=== PATIENT | male | born 1955 | race Caucasian/White ===

== ENCOUNTER 2018-10-21 11:33 | Day surgery (SDC) | payer OTHER ==
[2018-10-21] MEDS ORDERED: HEPARIN 1000 UNITS/ML 10 ML INJ (13:29)
[2018-10-21] MEDS ORDERED: LIDOCAINE 1% (MDV) 20 ML INJ (13:29)
[2018-10-21] MEDS ORDERED: FENTAnyl 50 MCG/ML VIAL (13:29)
[2018-10-21] MEDS ORDERED: MIDAZOLAM 1 MG/ML 2 ML INJ (13:30)
[2018-10-21] MEDS ORDERED: NITROGLYCERIN (IC) 100 MCG/ML INJ (13:30)
[2018-10-21] MEDS ORDERED: VERAPAMIL 5 MG INJ (13:30)
[2018-10-21 14:23] LABS: ADD MAN DIFF? NO
[2018-10-21 14:26] LABS: BASOPHILS % 0.4 % (0.0-2.0); EOSINOPHILS # 0.1 10^3/ul (0.0-0.5); EOSINOPHILS % 1.5 % (0.0-7.0); HEMATOCRIT 41.1 % (42.0-52.0); HEMOGLOBIN 13.9 g/dl (14.0-18.0); LYMPHOCYTES # 2.6 10^3/ul (0.8-2.9); LYMPHOCYTES % 36.6 % (15.0-51.0); MEAN CORPUSCULAR HEMOGLOBIN 32.3 pg (29.0-33.0); MEAN CORPUSCULAR HGB CONC 33.8 g/dl (32.0-37.0); MEAN CORPUSCULAR VOLUME 95.4 fl (82.0-101.0); MEAN PLATELET VOLUME 10.2 fl (7.4-10.4); MONOCYTE # 0.4 10^3/ul (0.3-0.9); NEUTROPHILS % 55.2 % (39.0-77.0); PLATELET COUNT 232 10^3/UL (140-415); RED BLOOD COUNT 4.31 10^6/ul (4.70-6.10)
[2018-10-21 14:26] LABS: WHITE BLOOD COUNT 7.2 10^3/ul (4.8-10.8)
[2018-10-21 14:30] LABS: PROTIME 12.3 Sec (11.9-14.9)
[2018-10-21 14:36] LABS: ALANINE AMINOTRANSFERASE 24 IU/L (13-69); ALBUMIN 4.1 g/dl (3.3-4.9); ALBUMIN/GLOBULIN RATIO 1.46; ALKALINE PHOSPHATASE 46 IU/L (42-121); ANION GAP 8 (5-13); ASPARTATE AMINO TRANSFERASE 27 IU/L (15-46); BILIRUBIN,INDIRECT 0.5 mg/dl (0-1.1); BILIRUBIN,TOTAL 0.5 mg/dl (0.2-1.3); BLOOD UREA NITROGEN 16 mg/dl (7-20); CALCIUM 9.2 mg/dl (8.4-10.2); CARBON DIOXIDE 28 mmol/L (21-31); CHLORIDE 105 mmol/L (97-110); CREATININE 0.92 mg/dl (0.61-1.24); Estimated GFR > 60 mL/min (>60); GLUCOSE 114 mg/dl (70-220); POTASSIUM 4.2 mmol/L (3.5-5.1); SODIUM 141 mmol/L (135-144); TOTAL PROTEIN 6.9 g/dl (6.1-8.1)
[2018-10-21] MEDS ORDERED: SOD CHLORIDE 0.9% 1,000 ML IV (14:40)
== END 2018-10-21 17:01 | disposition home or self-care (01) ==
LOC: SDS 11:33
DX: I25.10 Atherosclerotic heart disease of native coronary artery without angina pectoris (principal); I10 Essential (primary) hypertension; R94.39 Abnormal result of other cardiovascular function study; E11.9 Type 2 diabetes mellitus without complications; Z79.82 Long term (current) use of aspirin; Z79.84 Long term (current) use of oral hypoglycemic drugs
CPT/HCPCS: 80053; 82962; 85025; 85610; 93005; 93458

== ENCOUNTER 2019-01-05 05:14 | Inpatient (IN) | payer OTHER ==
[2019-01-05] MEDS: MILRINONE LACTATE 2 MG in SOD CHLORIDE 0.9% 50 ML IV (06:00)
[2019-01-05] MEDS: PHENYLephrine 20MG IN 250 ML 250 ML IV (06:00)
[2019-01-05] MEDS: EPINEPHrine 4 MG in DEXTROSE 5% 246 ML IV (06:00)
[2019-01-05] MEDS: ASPIRIN 600 MG SUPP PR (06:00)
[2019-01-05] MEDS: INSULIN HUMAN REGULAR 100 UNIT in SOD CHLORIDE 0.9% 99 ML IVPB (06:00)
[2019-01-05] MEDS: HEPARIN (10000 UNITS/ML) 10,000 UNIT, MILRINONE LACTATE 10 MG in SOD CHLORIDE 0.9% 1,00... SC (06:00)
[2019-01-05] MEDS: CEFAZOLIN 2 GM/50 ML (PMX) 50 ML IVPB (06:30)
[2019-01-05] MEDS ORDERED: PAPAVERINE 60 MG INJ ×2 (06:37→08:22)
[2019-01-05] MEDS: HEPARIN 1000 UNITS/ML 10 ML INJ (06:37)
[2019-01-05] MEDS ORDERED: THROMBIN 5000 UNIT (RECOTHROM) VIAL (06:37)
[2019-01-05] MEDS ORDERED: VANCOMYCIN 1 GM INJ (06:37)
[2019-01-05] MEDS ORDERED: GELATIN SIZE 100 SPONGE (06:37)
[2019-01-05] MEDS: SOD CHLORIDE 0.9% 1,000 ML IV (06:39)
[2019-01-05] MEDS ORDERED: ISOFLURANE 15 MIN (07:00)
[2019-01-05] MEDS ORDERED: DOPamine-D5W 1.6 MG/ML 250 ML (07:00)
[2019-01-05] MEDS ORDERED: NITROGLYCERIN 50 MG/D5W 250 ML BTL (07:00)
[2019-01-05] MEDS ORDERED: MIDAZOLAM 5 ML ×2 (07:21→09:08)
[2019-01-05] MEDS ORDERED: LIDOCAINE 2% (SDV) 5 ML INJ ×2 (08:05→09:44)
[2019-01-05] MEDS ORDERED: CA CHLORIDE 10% 10 ML SYRINGE (08:05)
[2019-01-05] MEDS ORDERED: NA BICARBONATE 8.4% 50 ML SYG (08:05)
[2019-01-05] MEDS ORDERED: MANNITOL 20% 500 ML (08:05)
[2019-01-05] MEDS ORDERED: ALBUMIN HUMAN 25% 200 ML (08:05)
[2019-01-05] MEDS ORDERED: PHENYLephrine 10 MG INJ (08:05)
[2019-01-05] MEDS ORDERED: AMINOCAPROIC ACID 5 GM INJ ×4 (08:06→09:45)
[2019-01-05] MEDS ORDERED: POTASSIUM CHLORIDE 40 MEQ INJ (08:06)
[2019-01-05] MEDS ORDERED: HEPARIN 1000 UNITS/ML 10 ML INJ ×2 (08:06→08:15)
[2019-01-05] MEDS ORDERED: MAGNESIUM SULFATE (MG) 50% 10 ML INJ (08:06)
[2019-01-05] MEDS ORDERED: NORepinephrine 4 MG INJ (08:06)
[2019-01-05] MEDS ORDERED: CEFAZOLIN 1 GM INJ ×2 (08:07→09:45)
[2019-01-05] MEDS ORDERED: HEPARIN 10,000 UNITS/ML 1 ML INJ (09:38)
[2019-01-05] MEDS ORDERED: ROCURONIUM 50 MG INJ (09:44)
[2019-01-05] MEDS ORDERED: ETOMIDATE 20 MG INJ (09:44)
[2019-01-05] MEDS ORDERED: PROTAMINE 250 MG INJ (10:18)
[2019-01-05] MEDS ORDERED: ONDANSETRON 4 MG INJ IV (13:00)
[2019-01-05] MEDS ORDERED: DOPamine-D5W 1.6 MG/ML 250 ML IV (13:00)
[2019-01-05] MEDS ORDERED: LORAZEPAM 2 MG INJ IV (13:00)
[2019-01-05] MEDS ORDERED: morphine 2 MG INJ IV (13:00)
[2019-01-05] MEDS ORDERED: NITROGLYCERIN 50 MG/D5W (PMX) 250 ML IV (13:00)
[2019-01-05] MEDS ORDERED: DIPHENHYDRAMINE 50 MG INJ IV (13:00)
[2019-01-05] MEDS ORDERED: MEPERIDINE 25 MG INJ IV (13:00)
[2019-01-05] MEDS ORDERED: FENTAnyl 50 MCG/ML VIAL IV (13:00)
[2019-01-05 13:15] LABS: ADD MAN DIFF? NO; BASOPHILS % 0.1 % (0.0-2.0); EOSINOPHILS % 0.3 % (0.0-7.0); HEMATOCRIT 35.3 % (42.0-52.0); HEMOGLOBIN 11.7 g/dl (14.0-18.0); LYMPHOCYTES # 1.8 10^3/ul (0.8-2.9); LYMPHOCYTES % 18.6 % (15.0-51.0); MEAN CORPUSCULAR HEMOGLOBIN 32.9 pg (29.0-33.0); MEAN CORPUSCULAR HGB CONC 33.1 g/dl (32.0-37.0); MEAN CORPUSCULAR VOLUME 99.2 fl (82.0-101.0); MEAN PLATELET VOLUME 9.5 fl (7.4-10.4); MONOCYTE # 0.3 10^3/ul (0.3-0.9); MONOCYTES % 3.5 % (0.0-11.0); NEUTROPHIL # 7.2 10^3/ul (1.6-7.5); NEUTROPHILS % 77.2 % (39.0-77.0); PLATELET COUNT 118 10^3/UL (140-415); RED BLOOD COUNT 3.56 10^6/ul (4.70-6.10); RED CELL DISTRIBUTION WIDTH 12.2 % (11.5-14.5)
[2019-01-05 13:15] LABS: WHITE BLOOD COUNT 9.4 10^3/ul (4.8-10.8)
[2019-01-05 13:26] LABS: AADO2 Arterial 326.2 mmHg (7.0-24.0); Arterial Base Excess -4.6 mmol/L (-3.0-3); Arterial Blood Gas Oxygen Sat 97.5 mmHG (95.0-98.0); Arterial COHb 0.3 % (0.0-3.0); Arterial Fraction of Oxyhgb 96.8 % (93.0-99.0); Arterial MetHb 0.4 % (0.0-1.5); Arterial pCO2 46.6 mmhg (35-45); MODE VENT - AC; Site A-Line
[2019-01-05 13:30] LABS: MODE VENT - AC; MetHgb Mixed Venous 0.5 %; Mixed Venous COHb 0.5 %; Mixed Venous Fraction OxyHgb 69.6 %; Mixed Venous Oxygen Sat 70.3 mmHG (65.0-75.0); Mixed Venous Total Hemglobin 12.7 g/dl; Sample Type BLMV; Site OTHER
[2019-01-05 13:36] LABS: INR 1.34; PROTIME 16.7 Sec (11.9-14.9); PT RATIO 1.3
[2019-01-05 13:37] LABS: PARTIAL THROMBOPLASTIN TIME 30.2 Sec (23.0-35.0)
[2019-01-05 13:39] LABS: ANION GAP 5 (5-13); BLOOD UREA NITROGEN 13 mg/dl (7-20); CALCIUM 8.4 mg/dl (8.4-10.2); CARBON DIOXIDE 25 mmol/L (21-31); CHLORIDE 110 mmol/L (97-110); CREATININE 0.87 mg/dl (0.61-1.24); Estimated GFR > 60 mL/min (>60); GLUCOSE 99 mg/dl (70-220); MAGNESIUM 2.6 mg/dl (1.7-2.5); POTASSIUM 4.1 mmol/L (3.5-5.1); SODIUM 140 mmol/L (135-144)
[2019-01-05] MEDS ORDERED: PROPOFOL 100 ML (14:04)
[2019-01-05] MEDS ORDERED: MILRINONE LACTATE 100 ML (14:15)
[2019-01-05] MEDS: NORepinephrine 8MG/250 ML (PMX 250 ML IV ×2 (14:55→18:35)
[2019-01-05] MEDS: morphine 2 MG INJ IV ×4 (14:56→22:23)
[2019-01-05 16:38] LABS: AADO2 Arterial 88.8 mmHg (7.0-24.0); Arterial Base Excess -5.1 mmol/L (-3.0-3); Arterial COHb 0.2 % (0.0-3.0); Arterial Fraction of Oxyhgb 94.5 % (93.0-99.0); Arterial HCO3 20.4 mmol/L (22.0-26.0); Arterial MetHb 0.3 % (0.0-1.5); Arterial pCO2 39.5 mmhg (35-45); Blood Gas PS 10; MODE VENT - CPAP; Site A-Line
[2019-01-05] MEDS: PROPOFOL 100 ML IV (17:03)
[2019-01-05] MEDS ORDERED: DEXTROSE 50% 50 ML SYRINGE IV ×2 (18:00)
[2019-01-05] MEDS: D5-0.2 NACL + KCL 20 MEQ 1,000 ML IV (18:10)
[2019-01-05 18:16] LABS: ADD MAN DIFF? NO
[2019-01-05 18:19] LABS: WHITE BLOOD COUNT 13.3 10^3/ul (4.8-10.8)
[2019-01-05 18:19] LABS: BASOPHILS % 0.2 % (0.0-2.0); EOSINOPHILS # 0.1 10^3/ul (0.0-0.5); EOSINOPHILS % 0.8 % (0.0-7.0); HEMOGLOBIN 12.2 g/dl (14.0-18.0); LYMPHOCYTES # 1.3 10^3/ul (0.8-2.9); LYMPHOCYTES % 9.7 % (15.0-51.0); MEAN CORPUSCULAR HEMOGLOBIN 32.9 pg (29.0-33.0); MEAN CORPUSCULAR VOLUME 99.7 fl (82.0-101.0); MEAN PLATELET VOLUME 10.7 fl (7.4-10.4); MONOCYTE # 1.4 10^3/ul (0.3-0.9); MONOCYTES % 10.2 % (0.0-11.0); NEUTROPHIL # 10.4 10^3/ul (1.6-7.5); NEUTROPHILS % 78.7 % (39.0-77.0); PLATELET COUNT 153 10^3/UL (140-415); RED BLOOD COUNT 3.71 10^6/ul (4.70-6.10); RED CELL DISTRIBUTION WIDTH 12.4 % (11.5-14.5)
[2019-01-05 18:38] LABS: ANION GAP 8 (5-13); BLOOD UREA NITROGEN 15 mg/dl (7-20); CALCIUM 8.4 mg/dl (8.4-10.2); CARBON DIOXIDE 25 mmol/L (21-31); CHLORIDE 106 mmol/L (97-110); CREATININE 1.02 mg/dl (0.61-1.24); Estimated GFR > 60 mL/min (>60); GLUCOSE 162 mg/dl (70-220); MAGNESIUM 2.2 mg/dl (1.7-2.5); POTASSIUM 4.5 mmol/L (3.5-5.1); SODIUM 139 mmol/L (135-144)
[2019-01-05 18:39] LABS: INR 1.11; PARTIAL THROMBOPLASTIN TIME 24.4 Sec (23.0-35.0); PROTIME 14.4 Sec (11.9-14.9); PT RATIO 1.1
[2019-01-05] MEDS: INSULIN HUMAN REGULAR 100 UNIT in SOD CHLORIDE 0.9% 99 ML IV (18:43)
[2019-01-05] MEDS: ACCU-CHEK XX ×6 (18:47→23:07)
[2019-01-05 21:56] LABS: AADO2 Arterial 83.4 mmHg (7.0-24.0); Arterial Base Excess -4.5 mmol/L (-3.0-3); Arterial Blood Gas Oxygen Sat 96.4 mmHG (95.0-98.0); Arterial COHb 0.2 % (0.0-3.0); Arterial Fraction of Oxyhgb 95.9 % (93.0-99.0); Arterial HCO3 20.4 mmol/L (22.0-26.0); Arterial MetHb 0.3 % (0.0-1.5); Arterial pCO2 37.2 mmhg (35-45); MODE VENT - CPAP; Site A-Line
[2019-01-06] MEDS: ACETAMINOPHEN 325 MG TAB PO (00:26)
[2019-01-06] MEDS: ACCU-CHEK XX ×24 (01:12→23:01)
[2019-01-06] MEDS: morphine 2 MG INJ IV ×5 (02:10→15:54)
[2019-01-06] MEDS: PROPOFOL 100 ML IV ×2 (02:30→13:43)
[2019-01-06 05:43] LABS: ADD MAN DIFF? NO
[2019-01-06] MEDS: ONDANSETRON 4 MG INJ IV (05:52)
[2019-01-06 05:59] LABS: WHITE BLOOD COUNT 13.3 10^3/ul (4.8-10.8)
[2019-01-06 05:59] LABS: BASOPHILS % 0.2 % (0.0-2.0); HEMATOCRIT 35.5 % (42.0-52.0); HEMOGLOBIN 11.9 g/dl (14.0-18.0); LYMPHOCYTES # 1.5 10^3/ul (0.8-2.9); LYMPHOCYTES % 11.2 % (15.0-51.0); MEAN CORPUSCULAR HEMOGLOBIN 33.1 pg (29.0-33.0); MEAN CORPUSCULAR HGB CONC 33.5 g/dl (32.0-37.0); MEAN CORPUSCULAR VOLUME 98.6 fl (82.0-101.0); MEAN PLATELET VOLUME 10.6 fl (7.4-10.4); MONOCYTE # 1.1 10^3/ul (0.3-0.9); MONOCYTES % 8.5 % (0.0-11.0); NEUTROPHIL # 10.6 10^3/ul (1.6-7.5); NEUTROPHILS % 79.7 % (39.0-77.0); PLATELET COUNT 163 10^3/UL (140-415); RED CELL DISTRIBUTION WIDTH 12.6 % (11.5-14.5)
[2019-01-06 06:04] LABS: ANION GAP 5 (5-13); BLOOD UREA NITROGEN 15 mg/dl (7-20); CALCIUM 8.1 mg/dl (8.4-10.2); CARBON DIOXIDE 25 mmol/L (21-31); CHLORIDE 107 mmol/L (97-110); CREATININE 0.93 mg/dl (0.61-1.24); Estimated GFR > 60 mL/min (>60); GLUCOSE 145 mg/dl (70-220); MAGNESIUM 2.2 mg/dl (1.7-2.5); POTASSIUM 4.6 mmol/L (3.5-5.1); SODIUM 137 mmol/L (135-144)
[2019-01-06 07:57] LABS: AADO2 Arterial 124.9 mmHg (7.0-24.0); Arterial Base Excess -4.9 mmol/L (-3.0-3); Arterial Blood Gas Oxygen Sat 92.7 mmHG (95.0-98.0); Arterial COHb 0.2 % (0.0-3.0); Arterial Fraction of Oxyhgb 92.2 % (93.0-99.0); Arterial HCO3 20.2 mmol/L (22.0-26.0); Arterial MetHb 0.3 % (0.0-1.5); Arterial pCO2 37.6 mmhg (35-45); MODE NASAL CANNULA; Site A-Line
[2019-01-06] MEDS: ALBUTEROL/IPRATROPIUM (NEB) 3 ML AMP HHN ×5 (08:05→20:48)
[2019-01-06] MEDS: METOPROLOL 25 MG TAB PO ×2 (08:29→20:37)
[2019-01-06] MEDS: ASPIRIN (EC) 81 MG TAB PO (08:33)
[2019-01-06] MEDS: D5-0.2 NACL + KCL 20 MEQ 1,000 ML IV (10:00)
[2019-01-06] MEDS: KETOROLAC 15 MG INJ IV ×2 (10:00→17:03)
[2019-01-06] MEDS: NORepinephrine 8MG/250 ML (PMX 250 ML IV (11:45)
[2019-01-06 12:01] LABS: ADD MAN DIFF? NO
[2019-01-06 12:09] LABS: WHITE BLOOD COUNT 14.9 10^3/ul (4.8-10.8)
[2019-01-06 12:09] LABS: BASOPHILS % 0.1 % (0.0-2.0); HEMATOCRIT 33.1 % (42.0-52.0); HEMOGLOBIN 10.9 g/dl (14.0-18.0); LYMPHOCYTES # 2.1 10^3/ul (0.8-2.9); LYMPHOCYTES % 14.4 % (15.0-51.0); MEAN CORPUSCULAR HEMOGLOBIN 32.9 pg (29.0-33.0); MEAN CORPUSCULAR HGB CONC 32.9 g/dl (32.0-37.0); MEAN PLATELET VOLUME 10.4 fl (7.4-10.4); MONOCYTE # 1.3 10^3/ul (0.3-0.9); MONOCYTES % 8.5 % (0.0-11.0); NEUTROPHIL # 11.4 10^3/ul (1.6-7.5); NEUTROPHILS % 76.6 % (39.0-77.0); PLATELET COUNT 150 10^3/UL (140-415); RED BLOOD COUNT 3.31 10^6/ul (4.70-6.10); RED CELL DISTRIBUTION WIDTH 12.7 % (11.5-14.5)
[2019-01-06 12:25] LABS: ANION GAP 5 (5-13); BLOOD UREA NITROGEN 17 mg/dl (7-20); CALCIUM 7.7 mg/dl (8.4-10.2); CARBON DIOXIDE 25 mmol/L (21-31); CHLORIDE 102 mmol/L (97-110); CREATININE 0.89 mg/dl (0.61-1.24); Estimated GFR > 60 mL/min (>60); GLUCOSE 225 mg/dl (70-220); MAGNESIUM 2.1 mg/dl (1.7-2.5); POTASSIUM 5.1 mmol/L (3.5-5.1); SODIUM 132 mmol/L (135-144)
[2019-01-06] MEDS: ALBUMIN HUMAN 25% 100 ML IV ×2 (15:51→23:12)
[2019-01-06] MEDS ORDERED: ONDANSETRON 4 MG INJ IV (16:30)
[2019-01-06] MEDS: ALBUMIN HUMAN 5% 250 ML IV ×2 (19:20→19:54)
[2019-01-06] MEDS: FUROSEMIDE 20 MG INJ IV (19:41)
[2019-01-06] MEDS: FAMOTIDINE 20 MG TAB PO (20:21)
[2019-01-06] MEDS: DOCUSATE SODIUM 100 MG CAP PO (20:21)
[2019-01-06] MEDS: ATORVASTATIN 20 MG TAB PO (20:21)
[2019-01-06] MEDS: ATORVASTATIN 40 MG TAB PO (20:21)
[2019-01-06] MEDS: HYDROCODONE/APAP (7.5/325) TAB PO (20:22)
[2019-01-07] MEDS: ACCU-CHEK XX ×10 (00:06→09:00)
[2019-01-07] MEDS: morphine 2 MG INJ IV ×2 (00:43→03:17)
[2019-01-07] MEDS: NORepinephrine 8MG/250 ML (PMX 250 ML IV (01:15)
[2019-01-07] MEDS: INSULIN HUMAN REGULAR 100 UNIT in SOD CHLORIDE 0.9% 99 ML IV (01:28)
[2019-01-07] MEDS: D5-0.2 NACL + KCL 20 MEQ 1,000 ML IV ×2 (02:55→20:26)
[2019-01-07 04:59] LABS: ADD MAN DIFF? NO
[2019-01-07 05:15] LABS: BASOPHILS % 0.1 % (0.0-2.0); HEMATOCRIT 25.2 % (42.0-52.0); HEMOGLOBIN 8.3 g/dl (14.0-18.0); LYMPHOCYTES # 1.5 10^3/ul (0.8-2.9); LYMPHOCYTES % 14.8 % (15.0-51.0); MEAN CORPUSCULAR HEMOGLOBIN 32.8 pg (29.0-33.0); MEAN CORPUSCULAR HGB CONC 32.9 g/dl (32.0-37.0); MEAN CORPUSCULAR VOLUME 99.6 fl (82.0-101.0); MEAN PLATELET VOLUME 10.9 fl (7.4-10.4); MONOCYTE # 0.7 10^3/ul (0.3-0.9); MONOCYTES % 7.3 % (0.0-11.0); NEUTROPHIL # 7.9 10^3/ul (1.6-7.5); NEUTROPHILS % 77.5 % (39.0-77.0); PLATELET COUNT 119 10^3/UL (140-415); RED BLOOD COUNT 2.53 10^6/ul (4.70-6.10); RED CELL DISTRIBUTION WIDTH 12.7 % (11.5-14.5)
[2019-01-07 05:15] LABS: WHITE BLOOD COUNT 10.2 10^3/ul (4.8-10.8)
[2019-01-07 05:34] LABS: ANION GAP 6 (5-13); BLOOD UREA NITROGEN 15 mg/dl (7-20); CALCIUM 8.1 mg/dl (8.4-10.2); CARBON DIOXIDE 29 mmol/L (21-31); CHLORIDE 101 mmol/L (97-110); CREATININE 1.02 mg/dl (0.61-1.24); Estimated GFR > 60 mL/min (>60); GLUCOSE 99 mg/dl (70-220); POTASSIUM 3.9 mmol/L (3.5-5.1); SODIUM 136 mmol/L (135-144)
[2019-01-07] MEDS: KETOROLAC 15 MG INJ IV ×3 (05:47→22:11)
[2019-01-07] MEDS: ALBUMIN HUMAN 25% 100 ML IV (07:10)
[2019-01-07 07:18] LABS: ALANINE AMINOTRANSFERASE 26 IU/L (13-69); ALBUMIN 3.5 g/dl (3.3-4.9); ALKALINE PHOSPHATASE 34 IU/L (42-121); ASPARTATE AMINO TRANSFERASE 37 IU/L (15-46); BILIRUBIN,INDIRECT 0.7 mg/dl (0-1.1); BILIRUBIN,TOTAL 0.7 mg/dl (0.2-1.3); TOTAL PROTEIN 5.8 g/dl (6.1-8.1)
[2019-01-07] MEDS: METOPROLOL 25 MG TAB PO ×2 (09:00→20:16)
[2019-01-07] MEDS: DOCUSATE SODIUM 100 MG CAP PO ×2 (09:29→20:20)
[2019-01-07] MEDS: ASPIRIN (EC) 81 MG TAB PO (09:29)
[2019-01-07] MEDS: FAMOTIDINE 20 MG TAB PO ×2 (09:29→20:20)
[2019-01-07] MEDS ORDERED: GLUCOSE GEL 15 GRAM TUBE PO ×2 (09:30)
[2019-01-07] MEDS ORDERED: GLUCOSE GEL 15 GRAM TUBE BUCCAL (09:30)
[2019-01-07] MEDS ORDERED: GLUCAGON 1 MG INJ IM (09:30)
[2019-01-07] MEDS ORDERED: DEXTROSE 50% 50 ML SYRINGE IV ×2 (09:30)
[2019-01-07] MEDS: HYDROCODONE/APAP (7.5/325) TAB PO ×2 (10:59→17:11)
[2019-01-07] MEDS: INSULIN ASPART [NOVOLOG] 3 ML PEN SC ×3 (12:10→20:19)
[2019-01-07] MEDS: ATORVASTATIN 40 MG TAB PO (20:20)
[2019-01-08] MEDS: HYDROCODONE/APAP (7.5/325) TAB PO ×4 (01:12→23:10)
[2019-01-08] MEDS: ACCU-CHEK XX (01:25)
[2019-01-08 04:51] LABS: ADD MAN DIFF? NO
[2019-01-08 04:59] LABS: WHITE BLOOD COUNT 8.5 10^3/ul (4.8-10.8)
[2019-01-08 04:59] LABS: BASOPHILS % 0.1 % (0.0-2.0); EOSINOPHILS # 0.1 10^3/ul (0.0-0.5); EOSINOPHILS % 0.8 % (0.0-7.0); HEMATOCRIT 22.9 % (42.0-52.0); HEMOGLOBIN 7.6 g/dl (14.0-18.0); LYMPHOCYTES # 1.4 10^3/ul (0.8-2.9); LYMPHOCYTES % 16.4 % (15.0-51.0); MEAN CORPUSCULAR HEMOGLOBIN 32.9 pg (29.0-33.0); MEAN CORPUSCULAR HGB CONC 33.2 g/dl (32.0-37.0); MEAN CORPUSCULAR VOLUME 99.1 fl (82.0-101.0); MEAN PLATELET VOLUME 10.4 fl (7.4-10.4); MONOCYTE # 0.5 10^3/ul (0.3-0.9); MONOCYTES % 6.2 % (0.0-11.0); NEUTROPHIL # 6.5 10^3/ul (1.6-7.5); NEUTROPHILS % 75.9 % (39.0-77.0); PLATELET COUNT 112 10^3/UL (140-415); RED BLOOD COUNT 2.31 10^6/ul (4.70-6.10); RED CELL DISTRIBUTION WIDTH 12.7 % (11.5-14.5)
[2019-01-08] MEDS: KETOROLAC 15 MG INJ IV ×2 (05:49→13:40)
[2019-01-08 05:58] LABS: ANION GAP 8 (5-13); BLOOD UREA NITROGEN 17 mg/dl (7-20); CALCIUM 8.3 mg/dl (8.4-10.2); CARBON DIOXIDE 26 mmol/L (21-31); CHLORIDE 100 mmol/L (97-110); CREATININE 0.88 mg/dl (0.61-1.24); Estimated GFR > 60 mL/min (>60); GLUCOSE 156 mg/dl (70-220); POTASSIUM 4.4 mmol/L (3.5-5.1); SODIUM 134 mmol/L (135-144)
[2019-01-08] MEDS: FAMOTIDINE 20 MG TAB PO ×2 (08:32→21:38)
[2019-01-08] MEDS: ASPIRIN (EC) 81 MG TAB PO (08:32)
[2019-01-08] MEDS: D5W-0.45 NACL + KCL 20 MEQ 1,000 ML IV ×2 (08:33→17:26)
[2019-01-08] MEDS: DOCUSATE SODIUM 100 MG CAP PO ×2 (08:33→21:38)
[2019-01-08] MEDS: INSULIN ASPART [NOVOLOG] 3 ML PEN SC ×4 (09:33→22:03)
[2019-01-08] MEDS: morphine 2 MG INJ IV (11:09)
[2019-01-08] MEDS: SOD FERRIC GLUC COMPLX 125 MG in SOD CHLORIDE 0.9% 100 ML IVPB (13:34)
[2019-01-08] MEDS: ATORVASTATIN 40 MG TAB PO (21:38)
[2019-01-09] MEDS: D5W-0.45 NACL + KCL 20 MEQ 1,000 ML IV (00:40)
[2019-01-09] MEDS: ACCU-CHEK XX (02:25)
[2019-01-09] MEDS: morphine 2 MG INJ IV (04:06)
[2019-01-09 06:09] LABS: ADD MAN DIFF? NO
[2019-01-09 06:18] LABS: BASOPHILS % 0.3 % (0.0-2.0); EOSINOPHILS # 0.3 10^3/ul (0.0-0.5); HEMATOCRIT 24.6 % (42.0-52.0); HEMOGLOBIN 8.2 g/dl (14.0-18.0); LYMPHOCYTES # 1.6 10^3/ul (0.8-2.9); LYMPHOCYTES % 22.8 % (15.0-51.0); MEAN CORPUSCULAR HEMOGLOBIN 33.1 pg (29.0-33.0); MEAN CORPUSCULAR HGB CONC 33.3 g/dl (32.0-37.0); MEAN CORPUSCULAR VOLUME 99.2 fl (82.0-101.0); MEAN PLATELET VOLUME 9.9 fl (7.4-10.4); MONOCYTE # 0.6 10^3/ul (0.3-0.9); MONOCYTES % 7.8 % (0.0-11.0); NEUTROPHIL # 4.5 10^3/ul (1.6-7.5); NEUTROPHILS % 64.7 % (39.0-77.0); PLATELET COUNT 170 10^3/UL (140-415); RED BLOOD COUNT 2.48 10^6/ul (4.70-6.10); RED CELL DISTRIBUTION WIDTH 12.8 % (11.5-14.5)
[2019-01-09 06:41] LABS: ANION GAP 5 (5-13); BLOOD UREA NITROGEN 17 mg/dl (7-20); CARBON DIOXIDE 30 mmol/L (21-31); CHLORIDE 101 mmol/L (97-110); CREATININE 0.99 mg/dl (0.61-1.24); Estimated GFR > 60 mL/min (>60); GLUCOSE 160 mg/dl (70-220); SODIUM 136 mmol/L (135-144)
[2019-01-09] MEDS: HYDROCODONE/APAP (7.5/325) TAB PO ×2 (08:09→20:04)
[2019-01-09] MEDS: DOCUSATE SODIUM 100 MG CAP PO ×2 (08:09→20:05)
[2019-01-09] MEDS: FAMOTIDINE 20 MG TAB PO ×2 (08:09→20:04)
[2019-01-09] MEDS: ASPIRIN (EC) 81 MG TAB PO (08:09)
[2019-01-09] MEDS: METOPROLOL (XL) 25 MG TAB PO (08:10)
[2019-01-09] MEDS: INSULIN ASPART [NOVOLOG] 3 ML PEN SC ×4 (08:32→20:09)
[2019-01-09] MEDS ORDERED: KETOROLAC 15 MG INJ IV (11:00)
[2019-01-09] MEDS: SOD FERRIC GLUC COMPLX 125 MG in SOD CHLORIDE 0.9% 100 ML IVPB (12:34)
[2019-01-09] MEDS: KETOROLAC 15 MG INJ IV (12:34)
[2019-01-09] MEDS: ATORVASTATIN 40 MG TAB PO (20:05)
[2019-01-10] MEDS: HYDROCODONE/APAP (7.5/325) TAB PO ×4 (01:55→23:32)
[2019-01-10] MEDS: ACCU-CHEK XX (01:56)
[2019-01-10] MEDS: INSULIN ASPART [NOVOLOG] 3 ML PEN SC ×4 (08:00→20:25)
[2019-01-10] MEDS: ASPIRIN (EC) 81 MG TAB PO (08:22)
[2019-01-10] MEDS: METOPROLOL (XL) 25 MG TAB PO (08:22)
[2019-01-10] MEDS: FAMOTIDINE 20 MG TAB PO ×2 (08:22→20:25)
[2019-01-10] MEDS: DOCUSATE SODIUM 100 MG CAP PO ×2 (08:23→20:25)
[2019-01-10 08:27] LABS: AADO2 Arterial 43.5 mmHg (7.0-24.0); Allen Test ACCEPTAB; Arterial Base Excess 0.4 mmol/L (-3.0-3); Arterial Blood Gas Oxygen Sat 93.5 mmHG (95.0-98.0); Arterial COHb 0.3 % (0.0-3.0); Arterial Fraction of Oxyhgb 93.1 % (93.0-99.0); Arterial HCO3 23.3 mmol/L (22.0-26.0); Arterial MetHb 0.1 % (0.0-1.5); Arterial pCO2 31.1 mmhg (35-45); MODE ROOM AIR; Site Right Radial
[2019-01-10] MEDS: SOD FERRIC GLUC COMPLX 125 MG in SOD CHLORIDE 0.9% 100 ML IVPB (12:10)
[2019-01-10] MEDS: ATORVASTATIN 40 MG TAB PO (20:25)
[2019-01-11] MEDS: ACCU-CHEK XX (02:08)
[2019-01-11] MEDS: FAMOTIDINE 20 MG TAB PO (09:05)
[2019-01-11] MEDS: DOCUSATE SODIUM 100 MG CAP PO (09:06)
[2019-01-11] MEDS: ASPIRIN (EC) 81 MG TAB PO (09:06)
[2019-01-11] MEDS: INSULIN ASPART [NOVOLOG] 3 ML PEN SC ×2 (09:39→11:50)
[2019-01-11] MEDS: METOPROLOL (XL) 25 MG TAB PO (13:54)
== END 2019-01-11 16:40 | disposition home or self-care (01) | DRG 228 ==
LOC: REC 05:14 → TEL 01-08 16:41 → ICU 12:45
PROVIDERS: Thoracic Surgery (Cardiothoracic Vascular Surgery)
PROC: 02100Z9 Bypass Coronary Artery, One Artery from Left Internal Mammary, Open Approach (ICD-10-PCS; principal; 2019-01-05 07:17)
PROC: 02C00ZZ Extirpation of Matter from Coronary Artery, One Artery, Open Approach (ICD-10-PCS; 2019-01-05 07:17)
PROC: 021109W Bypass Coronary Artery, Two Arteries from Aorta with Autologous Venous Tissue, Open Approach (ICD-10-PCS; 2019-01-05 07:17)
PROC: 06BP4ZZ Excision of Right Saphenous Vein, Percutaneous Endoscopic Approach (ICD-10-PCS; 2019-01-05 07:17)
DX: I25.10 Atherosclerotic heart disease of native coronary artery without angina pectoris (principal); R57.0 Cardiogenic shock; J96.00 Acute respiratory failure, unspecified whether with hypoxia or hypercapnia; R65.10 Systemic inflammatory response syndrome (SIRS) of non-infectious origin without acute organ dysfunction; J95.811 Postprocedural pneumothorax; F17.210 Nicotine dependence, cigarettes, uncomplicated; K21.9 Gastro-esophageal reflux disease without esophagitis; E78.5 Hyperlipidemia, unspecified; E11.9 Type 2 diabetes mellitus without complications; I10 Essential (primary) hypertension; F17.200 Nicotine dependence, unspecified, uncomplicated; Y84.8 Other medical procedures as the cause of abnormal reaction of the patient, or of later complication, without mention of misadventure at the time of the procedure; Y92.234 Operating room of hospital as the place of occurrence of the external cause; Z79.4 Long term (current) use of insulin; Z79.82 Long term (current) use of aspirin
CPT/HCPCS: 36592; 36600; 71045; 80048; 80076; 82803; 82962; 83735; 85025; 85610; 85730; 86850; 86900; 86901; 86920; 87040-91; 87081; 88304; 93005; 93312; 93320; 93325; 94640; 94664; 97116; 97162